=== PATIENT | male | born 1995 ===

== ENCOUNTER → 2025-01-09 11:27 | Outpatient (REF) | payer SELFPAY ==
[2025-01-12 04:09] LABS: Alcohol, Urine Screen/Quant Negative
[2025-01-12 13:34] LABS: Amphetamines, Serum Negative; Barbiturates, Serum Negative; Benzodiazepines, Serum Negative; Buprenorphine, Serum Negative; Cannabinoids, Serum Negative; Cocaine Metabolites, Serum Negative; Methadone, Serum Negative; Methamphetamine, Serum Negative; Opiates, Serum Negative; Oxycodone, Serum Negative; Phencyclidine, Serum Negative
== END ==
LOC: RAD 11:27
PROVIDERS: ATTENDING PHYSICIAN Family Medicine
DX: Z00.00 Encounter for general adult medical examination without abnormal findings (principal)
CPT/HCPCS: 36415; 71046; 80307